=== PATIENT | male | born 1980 | race Caucasian/White ===

== ENCOUNTER 2020-08-30 11:15 | Emergency (ER) | payer BC ==
[~2020-08-30] VITALS: Ht 175.3 cm; Wt 72.6 kg
[2020-08-30] MEDS ORDERED: MEDROLPACK PO (14:33)
[2020-08-30] MEDS ORDERED: INTESTINEX680 M2 PO (14:33)
[2020-08-30] MEDS ORDERED: AMOX-CLAV 875-1 EACH PO (14:33)
[2020-08-30] MEDS ORDERED: IBUPROFEN IB200 MG PO (14:33)
== END 2020-08-30 14:42 | disposition home or self-care (01) ==
LOC: ER 11:15
DX: M70.22 Olecranon bursitis, left elbow (principal); L03.114 Cellulitis of left upper limb